=== PATIENT | male | born 1985 | race Caucasian/White ===

== ENCOUNTER 2022-03-25 08:13 | Observation (INO) ==
[2022-03-25 08:32] VITALS: BMI 20.3
[2022-03-25] MEDS ORDERED: NS 1,000 ML IV 1,000 ML ONE ×3 (08:37→14:49)
[2022-03-25] MEDS ORDERED: NS 1,000 ML IV 1,000 ML IV ONE ×2 (08:37→10:15)
[2022-03-25 08:53] LABS: BASOPHILS % (AUTO) 0.3 % (0.2-1.0); EOSINOPHILS % (AUTO) 0.1 % (0.9-2.9); HEMOGLOBIN 16.9 g/dL (13.5-18.0); LYMPHOCYTES # (AUTO) 1.3 X10^3/uL (1.3-2.9); LYMPHOCYTES % (AUTO) 8.7 % (21.0-51.0); MEAN CORPUSCULAR HEMOGLOBIN 29.3 pg (27.0-34.0); MEAN CORPUSCULAR HGB CONC 34.4 g/dL (33.0-35.0); MEAN CORPUSCULAR VOLUME 85.2 fL (80.0-100.0); MEAN PLATELET VOLUME 10.7 fL (7.4-11.0); MONOCYTES # (AUTO) 0.9 x10^3/uL (0.3-0.8); MONOCYTES % (AUTO) 5.8 % (0.0-13.0); NEUTROPHILS # (AUTO) 12.9 x10^3/uL (2.2-4.8); NEUTROPHILS % (AUTO) 85.1 % (42.0-75.0); RED BLOOD COUNT 5.75 X10^6/uL (4.7-6.0); RED CELL DISTRIBUTION WIDTH 13.6 % (11.6-16.5); WHITE BLOOD COUNT 15.2 X10^3/uL (3.6-10.0)
--- NOTE | 2022-03-25 09:00 | DR.GENAD ---
HPI Time Seen Time Seen by Provider: 03/25/22 08:36 PCP Primary Care Physician: DR TELLEZ HPI Comment HPI Comment: According to pt he was working in the heat couple of days ago .Faraz began to experience gardual in onset and has slowly worsened to atleast 30 x per day .Has continued over the past 2 days .Pt took phenergan from his grandmother for vomiting and took percocet form his granddad to help with pain .Currently unable to keep anything down.Here to have himself checked .No one at home with similar symptoms.No abdomainl pain or diarrhea .Not eaten anyting unusal .Has not smoked marijuana for several weeks Complaint/Symptoms Chief Complaint Doctors Comments: feels dehydrated Chief Complaint:: PT STATES THAT HE HAS BEEN WORKING OUT IN THE HEAT FOR SEVERAL DAYS AND FOR THE PAST 2 DAYS HAS BEEN HAVING NAUSEA AND VOMITING. PT C/O DIZZINESS. PT C/O CRAMPING IN HIS STOMACH THAT IS CONSTANT. COVID-19 Coronavirus risk:travel/contact w/high risk person: No Has patient experienced Coronavirus symptoms: No Nurses notes reviewed Nurses Notes Review: Yes Source History Provided: Patient Mode of Arrival Mode of Arrival: Ambulatory Timing Onset of Chief Complaint: 03/25/22 PMH PMH Past Medical History: No Past Surgical History: Yes Surgical History: Cholecystectomy Family History History of Family Medical Conditions: Yes Family Medical History: Diabetes Mellitus, Cancer, ID, Coronary Artery Disease and Hypertension Social History Does patient currently use any type of tobacco product: No Have you used tobacco products in the last 12 months: No Type of Tobacco Use: None Does any household member use tobacco: No Alcohol Use: None Do you use any recreational Drugs:: No Lives With: Family Lives Where: Home Travel Risk Coronavirus risk:travel/contact w/high risk person: No Has patient experienced Coronavirus symptoms: No Infectious screening In the last 2 months have you had wt loss of >10#?: NO Have you had fever, night sweats or hemotysis?: No Have you traveled outside the country in the last 6 months?: No Isolation: Standard PE Vital Signs Vitals: Temperature 98.1 F Pulse Rate 95 Respiratory Rate 17 Blood Pressure [Left Arm] 143/86 Blood Pressure [Right Arm] 119/74 Blood Pressure 125/87 O2 Sat by Pulse Oximetry 99 General General Appearance: Alert, In No Apparent Distress and Anxious ENT ENT Exam: Mucous Membranes Dry Neck Neck Exam: Full ROM Respiratory Respiratory Exam: Normal Lung Sounds Bilat Abdominal Exam Abdominal Exam: Normal Inspection, Normal Bowel Sounds and Soft MDM Differential Diagnosis Differential Diagnosis: acute gastroenetritis, Dehydration ,drug use histroy of ROR Labs Reviewed Result Diagrams: 03/25/22 08:45 03/25/22 11:40 Laboratory: WBC 15.2 X10^3/uL (3.6-10.0) H 03/25/22 08:45 RBC 5.75 X10^6/uL (4.7-6.0) 03/25/22 08:45 Hgb 16.9 g/dL (13.5-18.0) 03/25/22 08:45 Hct 49.0 % (42.0-54.0) 03/25/22 08:45 MCV 85.2 fL (80.0-100.0) 03/25/22 08:45 MCH 29.3 pg (27.0-34.0) 03/25/22 08:45 MCHC 34.4 g/dL (33.0-35.0) 03/25/22 08:45 RDW 13.6 % (11.6-16.5) 03/25/22 08:45 Plt Count 318 X10^3/uL (150.0-450.0) 03/25/22 08:45 Plt Count Comment Adequate (ADEQUATE) 03/25/22 08:45 MPV 10.7 fL (7.4-11.0) 03/25/22 08:45 Neut % (Auto) 85.1 % (42.0-75.0) H 03/25/22 08:45 Lymph % (Auto) 8.7 % (21.0-51.0) L 03/25/22 08:45 [place] % (Auto) 5.8 % (0.0-13.0) 03/25/22 08:45 Eos % (Auto) 0.1 % (0.9-2.9) L 03/25/22 08:45 Baso % (Auto) 0.3 % (0.2-1.0) 03/25/22 08:45 Neut # (Auto) 12.9 x10^3/uL (2.2-4.8) H 03/25/22 08:45 Lymph # (Auto) 1.3 X10^3/uL (1.3-2.9) 03/25/22 08:45 [place] # (Auto) 0.9 x10^3/uL (0.3-0.8) H 03/25/22 08:45 Eos # (Auto) 0.0 x10^3/uL (0.0-0.2) 03/25/22 08:45 Baso # (Auto) 0.0 X10^3/uL (0.0-0.1) 03/25/22 08:45 Absolute Nucleated RBC 0.1 /100WBC 03/25/22 08:45 Giant Platelets Rare 03/25/22 08:45 Plt Morphology Comment Abnormal (NORMAL) 03/25/22 08:45 RBC Morphology Normal (NORMAL) 03/25/22 08:45 Sodium 137 mmol/L (136-145) 03/25/22 11:40 Corrected Sodium TNP 03/25/22 11:40 Potassium 4.0 mmol/L (3.5-5.1) 03/25/22 11:40 Chloride 98 mmol/L (98-107) 03/25/22 11:40 Carbon Dioxide 27.1 mmol/L (21-32) 03/25/22 11:40 BUN 44 mg/dL (7-18) H 03/25/22 11:40 Creatinine 2.05 mg/dL (0.70-1.30) H 03/25/22 11:40 Est GFR (MDRD) Af Amer 48 (>60) L 03/25/22 11:40 Est GFR (MDRD) Non-Af 40 (>60) L 03/25/22 11:40 Glucose 103 mg/dL (65-99) H 03/25/22 11:40 Calcium 8.7 mg/dL (8.5-10.1) 03/25/22 11:40 Corrected Calcium TNP 03/25/22 08:45 Total Bilirubin 0.70 mg/dL (0.2-1.0) 03/25/22 08:45 AST 20 Units/L (15-37) 03/25/22 08:45 ALT 33 Units/L (12-78) 03/25/22 08:45 Alkaline Phosphatase 131 Units/L (46-116) H 03/25/22 08:45 Total Protein 9.7 g/dL (6.4-8.2) H 03/25/22 08:45 Albumin 5.3 g/dL (3.4-5.0) H 03/25/22 08:45 Globulin 4.4 g/dL (2.5-4.5) 03/25/22 08:45 Albumin/Globulin Ratio 1.2 Ratio (1.1-2.1) 03/25/22 08:45 Specimen Type Random urine 03/25/22 09:59 Urine Color Yellow (YELLOW) 03/25/22 09:59 Urine Appearance Slightly hazy (CLEAR) 03/25/22 09:59 Urine pH 5.0 (5.0 - 8.0) 03/25/22 09:59 Ur Specific [place] 1.030 (1.000-1.030) 03/25/22 09:59 Urine Protein 3+ (NEGATIVE) 03/25/22 09:59 Urine Glucose (UA) Negative (NEGATIVE) 03/25/22 09:59 Urine Ketones 1+ (NEGATIVE) 03/25/22 09:59 Urine Blood 1+ (NEGATIVE) 03/25/22 09:59 Urine Nitrite Negative (NEGATIVE) 03/25/22 09:59 Urine Bilirubin 1+ (NEGATIVE) 03/25/22 09:59 Urine Urobilinogen Normal (NORMAL) 03/25/22 09:59 Ur Leukocyte Esterase Negative (NEGATIVE) 03/25/22 09:59 Urine RBC 0-2 /HPF (0-3) 03/25/22 09:59 Urine WBC 0-2 /HPF (0-5) 03/25/22 09:59 Ur Squamous Epith Cells Rare /HPF (NEGATIVE) 03/25/22 09:59 Urine Bacteria 1+ /HPF (NEGATIVE) 03/25/22 09:59 Hyaline Casts Numerous /LPF (NEGATIVE) 03/25/22 09:59 Granular Casts Few /LPF (NEGATIVE) 03/25/22 09:59 Ur Culture Indicated? No/not indicated 03/25/22 09:59 Urine Opiates Screen Negative (NEG=<300) 03/25/22 09:59 Urine Methadone Screen Negative (NEG=<300) 03/25/22 09:59 Ur Barbiturates Screen Negative (NEG=<200) 03/25/22 09:59 Ur Phencyclidine Scrn Negative (NEG=<25) 03/25/22 09:59 Ur Amphetamines Screen Negative (NEG=<1000) 03/25/22 09:59 U Benzodiazepines Scrn Negative (NEG=<200) 03/25/22 09:59 Urine Cocaine Screen Negative (NEG=<300) 03/25/22 09:59 U Marijuana (THC) Screen Positive (NEG=<50) A 03/25/22 09:59 Opioid Opioid Risk Tool Age (Esteban box if 16-45): Yes History of Preadolescent Sexual Abuse: No Total: 1 Total Score Risk Category: Low Risk Copyright: Rivas BIRD predicting aberrant behaviors Discharge Plan Diagnosis Discharge Problem: Acute dehydration, Acute renal failure, Leucocytosis, Marijuana smoker Discharge Plan Patient Disposition: ADMITTED INPATIENT Condition: Stable Orders to Discharge Patient Discharge Orders: Transfer (Routine); Ordered 03/25/22 Ordered By: Sebastian Morocho ADDITIONAL NOTES Additional Notes Additional Notes: spoke with Dr Mckeon .agreed to admit
[2022-03-25 09:06] LABS: GIANT PLATELET RARE; PLATELET MORPHOLOGY COMMENT ABNORMAL (NORMAL)
[2022-03-25 09:10] LABS: ALANINE AMINOTRANSFERASE 33 Units/L (12-78); ALBUMIN 5.3 g/dL (3.4-5.0); ALKALINE PHOSPHATASE 131 Units/L (46-116); ASPARTATE AMINO TRANSFERASE 20 Units/L (15-37); BLOOD UREA NITROGEN 50 mg/dL (7-18); CALCIUM 10.1 mg/dL (8.5-10.1); CARBON DIOXIDE 28.6 mmol/L (21-32); CHLORIDE 88 mmol/L (98-107); COR NA(FOR HYPERGLY) 135 mmol/L (136-145); CREATININE 2.96 mg/dL (0.70-1.30); SODIUM 133 mmol/L (136-145); TOTAL PROTEIN 9.7 g/dL (6.4-8.2); eGFR NON BLACK RACES 26 (>60)
[2022-03-25 10:12] LABS: BILIRUBIN,URINE 1+ (NEGATIVE); BLOOD/HEMOGLOBIN,URINE 1+ (NEGATIVE); GLUCOSE, URINE NEGATIVE (NEGATIVE); KETONES,URINE 1+ (NEGATIVE); LEUKOCYTE ESTERASE ,URINE NEGATIVE (NEGATIVE); NITRITES,URINE NEGATIVE (NEGATIVE); PROTEIN,URINE 3+ (NEGATIVE); UROBILINOGEN,URINE NORMAL (NORMAL)
[2022-03-25 10:29] LABS: APPEARANCE,URINE SLIGHTLY HAZY (CLEAR); COLOR,URINE YELLOW (YELLOW)
[2022-03-25 10:30] LABS: BACTERIA,URINE 1+ /HPF (NEGATIVE); GRANULAR CASTS,URINE FEW /LPF (NEGATIVE); HYALINE CASTS, URINE NUMEROUS /LPF (NEGATIVE); RBC,URINE 0-2 /HPF (0-3); SQUAMOUS EPITHELIAL CELL,UR RARE /HPF (NEGATIVE)
[2022-03-25 12:11] LABS: BLOOD UREA NITROGEN 44 mg/dL (7-18); CALCIUM 8.7 mg/dL (8.5-10.1); CARBON DIOXIDE 27.1 mmol/L (21-32); CHLORIDE 98 mmol/L (98-107); CREATININE 2.05 mg/dL (0.70-1.30); SODIUM 137 mmol/L (136-145); eGFR NON BLACK RACES 40 (>60)
[2022-03-25] MEDS: ZOFRAN INJ 4 MG VIAL IVP PRN ×2 (14:50→22:50)
[2022-03-25] MEDS: NS 1,000 ML IV 1,000 ML IV SCH ×2 (15:10→22:19)
[2022-03-26] MEDS: NS 1,000 ML IV 1,000 ML IV SCH ×3 (00:55→15:21)
[2022-03-26 05:11] LABS: EOSINOPHILS % (AUTO) 0.1 % (0.9-2.9); HEMATOCRIT 33.9 % (42.0-54.0); LYMPHOCYTES # (AUTO) 2.1 X10^3/uL (1.3-2.9); WHITE BLOOD COUNT 8.8 X10^3/uL (3.6-10.0)
[2022-03-26 05:19] LABS: BASOPHILS % (AUTO) 0.1 % (0.2-1.0); HEMOGLOBIN 11.9 g/dL (13.5-18.0); LYMPHOCYTES % (AUTO) 24.1 % (21.0-51.0); MEAN CORPUSCULAR HGB CONC 35.1 g/dL (33.0-35.0); MEAN CORPUSCULAR VOLUME 85.6 fL (80.0-100.0); MEAN PLATELET VOLUME 10.5 fL (7.4-11.0); MONOCYTES # (AUTO) 0.9 x10^3/uL (0.3-0.8); MONOCYTES % (AUTO) 10.5 % (0.0-13.0); NEUTROPHILS # (AUTO) 5.8 x10^3/uL (2.2-4.8); NEUTROPHILS % (AUTO) 65.2 % (42.0-75.0); RED BLOOD COUNT 3.96 X10^6/uL (4.7-6.0)
[2022-03-26 05:22] LABS: ALANINE AMINOTRANSFERASE 21 Units/L (12-78); ALBUMIN 3.3 g/dL (3.4-5.0); ALKALINE PHOSPHATASE 77 Units/L (46-116); ASPARTATE AMINO TRANSFERASE 13 Units/L (15-37); BLOOD UREA NITROGEN 31 mg/dL (7-18); CALCIUM 8.1 mg/dL (8.5-10.1); CARBON DIOXIDE 29.8 mmol/L (21-32); CHLORIDE 104 mmol/L (98-107); COR CA(FOR HYPOALB) 8.7 mg/dL (8.5-10.1); CREATINE KINASE 244 Units/L (39-308); CREATININE 1.32 mg/dL (0.70-1.30); SODIUM 138 mmol/L (136-145); eGFR NON BLACK RACES > 60 (>60)
[2022-03-26] MEDS: ZOFRAN INJ 4 MG VIAL IVP PRN (10:45)
[2022-03-26 14:12] VITALS: BP 131/84
== END 2022-03-26 16:05 | disposition home or self-care (01) ==
LOC: MED/SURG 08:27 → ER 08:27 → MED/SURG 14:14
PROVIDERS: ADMIT Internal Medicine; ATTEND Obstetrics & Gynecology Obstetrics
DX: E86.0 Dehydration; R42 Dizziness and giddiness; R11.2 Nausea with vomiting, unspecified; F12.90 Cannabis use, unspecified, uncomplicated; E87.1 Hypo-osmolality and hyponatremia; Z20.822 Contact with and (suspected) exposure to COVID-19; N17.8 Other acute kidney failure; R73.09 Other abnormal glucose